=== PATIENT | male | born 1995 | race Caucasian/White ===

== ENCOUNTER 2020-10-23 19:33 | Emergency (ER) | payer MEDICAID, OTHER, SELFPAY ==
[~2020-10-23] VITALS: Ht 177.8 cm; Wt 68.5 kg
[2020-10-23 19:37] VITALS: BP 123/69
== END 2020-10-23 20:30 ==
LOC: ED 20:01
DX: R09.81 Nasal congestion (principal); Z20.822 Contact with and (suspected) exposure to COVID-19; R51.9 Headache, unspecified; R43.8 Other disturbances of smell and taste
CPT/HCPCS: 99283; U0003